=== PATIENT | female | born 1930 | race Two or more races ===

== ENCOUNTER 2020-09-22 14:09 | Inpatient (IN) | payer MEDICARE, OTHER ==
[~2020-09-22] VITALS: Ht 162.6 cm; Wt 63.5 kg
[2020-09-22] MEDS ORDERED: IV NORMAL SALINE 1000 ML BAG IV ONE (14:30)
[2020-09-22 14:53] LABS: HEMATOCRIT 36.7 % (31.2-41.9); MEAN CORPUSCULAR HEMOGLOBIN 32.1 uug (24.7-32.8); MEAN CORPUSCULAR VOLUME 93.8 fL (75.5-95.3); PLATELET COUNT (AUTO) 174 K/uL (179-408)
[2020-09-22 15:00] LABS: CREATININE 1.3 mg/dL (0.6-1.3); POTASSIUM 3.1 mmol/L (3.5-5.1)
[2020-09-22 15:05] LABS: BILIRUBIN,DIRECT 0.2 mg/dL (0.0-0.2); BILIRUBIN,TOTAL 0.7 mg/dL (0.2-1.0); TOTAL PROTEIN, SERUM 6.5 g/dL (6.4-8.2)
[2020-09-22] MEDS ORDERED: LOPE2CAP PO (15:19)
[2020-09-22] MEDS ORDERED: LETR2.5T PO (15:19)
[2020-09-22] MEDS ORDERED: LOSA50TA39 PO (15:19)
[2020-09-22] MEDS ORDERED: PRAZ1CAP5 PO (15:26)
[2020-09-22] MEDS ORDERED: CALC1TAB91 PO (15:26)
[2020-09-22] MEDS ORDERED: ATOR10TA PO (15:26)
[2020-09-22] MEDS ORDERED: GLIM4TAB37 PO (15:26)
[2020-09-22] MEDS ORDERED: ALLO100T PO (15:26)
[2020-09-22] MEDS ORDERED: MECL-159 PO (15:26)
[2020-09-22] MEDS ORDERED: hydrALAZINE HCL 20 MG/1 ML VIAL IV ONE (17:15)
[2020-09-22] MEDS ORDERED: hydrALAZINE HCL 20 MG/1 ML VIAL ONE (18:39)
[2020-09-22] MEDS ORDERED: MAGNESIUM HYDROXIDE 30 ML LIQUID UDC PO PRN (20:15)
[2020-09-22] MEDS ORDERED: Z GUARD REMEDY PASTE 57 GM TUBE TOP PRN (20:15)
[2020-09-22] MEDS ORDERED: ONDANSETRON 4 MG/2 ML VIAL IV PRN (20:15)
[2020-09-22] MEDS ORDERED: ACETAMINOPHEN 325 MG TABLET PO PRN (20:15)
--- NOTE | 2020-09-22 20:19 | NUR ---
Gave report to Violeta VERGARA, tele nurse.
--- NOTE | 2020-09-22 20:40 | NUR ---
Pt. admitted to tele room 307 , under care of Dx: ALOC VSS, denies any pain/discomfort. Belongs List completed
[2020-09-22 20:45] VITALS: BP 138/57
[2020-09-22] MEDS ORDERED: MECLIZINE HCL 25 MG TABLET PO PRN (20:45)
[2020-09-22] MEDS ORDERED: DEXTROSE 50% 50 ML DISP.SYRIN IV PRN (20:45)
[2020-09-22] MEDS ORDERED: LOPERAMIDE HCL 2 MG CAPSULE PO PRN (20:45)
[2020-09-22] MEDS: ATORVASTATIN 10 MG TABLET PO SCH (21:00)
[2020-09-22] MEDS ORDERED: POTASSIUM CHLORIDE 20 MEQ TAB.PRT.SR PO ONE (21:00)
[2020-09-22] MEDS: BLOOD SUGAR DIAGNOSTIC 1 EACH STRIP VI SCH (21:39)
--- NOTE | 2020-09-22 23:00 | NUR ---
Patient is 89 y/o female admitted to [facility] at 2034H via [facility] accompanied by ER Nurse Alyssa. She is A/O x2 with visual hallucinations. Denies pain and discomfort. Heplock on left forearm flushed with NS, remains intact. Body assessment done, skin is intact. 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 Vital signs WNL. Call light placed within reach. Frequent visual checks done. Will continue to monitor.
--- NOTE | 2020-09-22 23:35 | NUR ---
Patient accucheck done, BS 194 patient refused insulin 3 units. Patient stated that she will be ok with her blood sugar and afraid that it will go too low at night. Risks and benefits explained, patient still refused.
[2020-09-23 00:05] VITALS: BP 198/47
[2020-09-23] MEDS: ENALAPRILAT DIHYDRATE 1.25 MG/1 ML VIAL IV PRN (02:29)
[2020-09-23] MEDS ORDERED: CLONIDINE-TTS 1 PATCH TD SCH (02:30)
[2020-09-23 04:10] VITALS: BP 201/61
--- NOTE | 2020-09-23 05:38 | NUR ---
Patient was noted with elevated blood pressure 238/65. Denies pain, discomfort, or dizziness. She is agitated and keep telling RN not to give her any BP medications. She is doubtful of the BP machine and is afraid her BP will go too low. Dr. Torrez informed and ordered Vasotec IV q6 and Clonidine patch q7days. Vasotec given at 0229H via slow IV push. BP at 0400H went down to 201/61. Patient is A/O x2, able to make needs known. Will continue to monitor.
[2020-09-23] MEDS: PANTOPRAZOLE SODIUM 40 MG TABLET.DR PO SCH (06:41)
[2020-09-23] MEDS: BLOOD SUGAR DIAGNOSTIC 1 EACH STRIP VI SCH ×4 (06:43→20:28)
--- NOTE | 2020-09-23 06:59 | NUR ---
Patient latest BP 179/63, HR 77. Denies pain and discomfort. A/O x2, able to make needs known. Will endorse to next shift.
[2020-09-23 07:44] LABS: MEAN CORPUSCULAR HEMOGLOBIN 31.9 uug (24.7-32.8); MEAN CORPUSCULAR VOLUME 94.6 fL (75.5-95.3); PLATELET COUNT (AUTO) 174 K/uL (179-408)
[2020-09-23] MEDS: ALLOPURINOL 100 MG TABLET PO SCH ×3 (08:05→20:27)
[2020-09-23] MEDS: CALCIUM CARB/VITAMIN D 500MG-200UNITS TABLET PO SCH (08:05)
[2020-09-23] MEDS: PRAZOSIN HCL 1 MG CAPSULE PO SCH ×3 (08:06→16:29)
[2020-09-23] MEDS: LOSARTAN POTASSIUM 50 MG TABLET PO SCH (08:06)
[2020-09-23] MEDS: GLIMEPIRIDE 4 MG TABLET PO SCH ×2 (08:07→17:15)
--- NOTE | 2020-09-23 08:16 | NUR ---
ALERT BUT CONFUSED TALKING TO SELF REFUSED HER INSULIN STATED THAT HER DOCTOR DID NOT WANT HER TO BE TAKING INSULIN ONLY AMARYL ALL NEEDS ANTICIPATED AND SATISFIED WILL CONTINUE TO OBSERVE.
[2020-09-23 08:25] LABS: ALANINE AMINOTRANSFERASE < 6 U/L (14-59); ALKALINE PHOSPHATASE 61 U/L (50-136); ASPARTATE AMINOTRANSFERASE 18 U/L (15-37); BILIRUBIN,TOTAL 0.6 mg/dL (0.2-1.0); CARBON DIOXIDE 26 mmol/L (21-32); CHLORIDE 106 mmol/L (98-107); CREATININE 1.1 mg/dL (0.6-1.3); GLUCOSE 158 mg/dL (74-106); PHOSPHOROUS 2.8 mg/dL (2.5-4.9); POTASSIUM 3.9 mmol/L (3.5-5.1); TOTAL PROTEIN, SERUM 6.2 g/dL (6.4-8.2); UREA NITROGEN, BLOOD 12 mg/dL (7-18)
[2020-09-23 09:13] LABS: CHOLESTEROL 176 mg/dL (<200); HDL CHOLESTEROL 45 mg/dL (40-60); TRIGLYCERIDES 103 MG/DL (30-150)
[2020-09-23 09:40] LABS: MAGNESIUM 1.8 mg/dL (1.8-2.4)
--- NOTE | 2020-09-23 11:30 | NUR ---
PATIENT WAS CONVINCED BY HER DAUGHTER AT THE BEDSIDE AND DR BECCA KEEN TO BE STRAIGHT CATH FOR SPECIMEN AND SHE AGREED WAS STRAIGHT CATH AND SENT TO THE LAB.
[2020-09-23 12:21] LABS: *BILIRUBIN,URIN NEGATIVE (NEGATIVE); *BLOOD, URINE NEGATIVE (NEGATIVE); *CLARITY,URINE CLEAR (CLEAR); *COLOR,URINE YELLOW (YELLOW); *KETONES,URINE NEGATIVE (NEGATIVE); LEUKOCYTE ESTERASE ,URINE NEGATIVE (NEGATIVE); NITRITE, URINE NEGATIVE (NEGATIVE); UGLUCOSE NEGATIVE (NEGATIVE)
--- NOTE | 2020-09-23 12:21 | NUR ---
BLOOD PRESSURE IS 189/65 HEART RATE IS 75 BLOOD SUGAR IS 184 PATIENT REFUSED HYDRALAZINE AND INSULIN COVERAGE ORDERED STATED WILL NOT TAKE THEM PATIENTS DAUGHTER LENETTE HERE AT THE BEDSIDE AND AWARE AND STATED THAT HER MOTHER IS ALWAYS LIKE THIS AT HOME REFUSES MOST OF HER MEDICATIONS .
[2020-09-23 12:29] LABS: *CREATININE,URINE 80.8 mg/dL (30-125); *URINE TOTAL PROTEIN RANDOM 19.1 mg/dL (<150/24HR)
[2020-09-23 12:30] VITALS: BP 184/65
[2020-09-23 13:43] LABS: BACTERIA,URINE NONE SEEN /HPF (NONE SEEN); MUCUS,URINE FEW /LPF (0-FEW); RBC,URINE 0-3 /HPF (0-3); SQUAMOUS EPITHELIAL CELL,UR FEW /HPF (NONE SEEN); WBC,URINE 0-3 /HPF (0-3)
[2020-09-23 15:37] VITALS: BP 170/73
--- NOTE | 2020-09-23 15:44 | NUR ---
BLOOD SUGAR AGAIN IS 170/73 PATIENT STATED IT WAS OKAY STATED HIS DOCTOR DID NOT WANT HER TO TAKE ANY BLOOD PRESSURE MEDICATIONS PROVIDER WAS ALREADY NOTIFIED AND PATIENTS DAUGHTER ANNE IS ALSO AWARE. Addendum: 09/23/20 at 1550 by YOON ROMERO RN ERROR BLOOD PRESSURE IS 170/73 NOT BLOOD SUGAR
--- NOTE | 2020-09-23 17:12 | NUR ---
BLOOD SUGAR IS 203 AND PATIENT CONTINUES TO REFUSE INSULIN COVERAGE PER SLIDING SCALE ORDERED.DAUGHTER IS HERE AT THE BEDSIDE.
[2020-09-23] MEDS: ATORVASTATIN 10 MG TABLET PO SCH ×2 (20:19→20:27)
[2020-09-23] MEDS: INSULIN REGULAR, HUMAN 300 UNIT/3 ML VIAL SQ PRN (20:21)
[2020-09-23] MEDS: hydrALAZINE HCL 20 MG/1 ML VIAL IV PRN (20:25)
--- NOTE | 2020-09-23 20:30 | NUR ---
Pt refused due medications and insulin coverage. Latest BS is 144 Explained the risks of not getting the medication. Pt still refused. will continue to monitor.
[2020-09-23 21:07] VITALS: BP 174/48
[2020-09-24 00:44] VITALS: BP 187/75
[2020-09-24] MEDS: hydrALAZINE HCL 20 MG/1 ML VIAL IV PRN ×2 (01:24→05:08)
--- NOTE | 2020-09-24 04:00 | NUR ---
Pt noted with vomiting x 1. Offered zofran, pt refused. will continue to monitor.
[2020-09-24 04:30] VITALS: BP 206/71
[2020-09-24] MEDS: PANTOPRAZOLE SODIUM 40 MG TABLET.DR PO SCH (06:25)
[2020-09-24 06:35] LABS: HEMATOCRIT 37.8 % (31.2-41.9); MEAN CORPUSCULAR HEMOGLOBIN 32.4 uug (24.7-32.8); MEAN CORPUSCULAR VOLUME 95.3 fL (75.5-95.3); PLATELET COUNT (AUTO) 164 K/uL (179-408)
--- NOTE | 2020-09-24 06:41 | NUR ---
Pt slept intermittently through the night, took morning medication. No signs of respiratory distress. Repositioning done for comfort. PRN BP medication administered as ordered. All needs attended to and met.
[2020-09-24] MEDS: BLOOD SUGAR DIAGNOSTIC 1 EACH STRIP VI SCH ×4 (06:59→20:32)
[2020-09-24 07:03] LABS: BILIRUBIN,TOTAL 0.7 mg/dL (0.2-1.0); CREATININE 1.1 mg/dL (0.6-1.3); PHOSPHOROUS 3.3 mg/dL (2.5-4.9); POTASSIUM 3.7 mmol/L (3.5-5.1); TOTAL PROTEIN, SERUM 6.5 g/dL (6.4-8.2)
[2020-09-24 07:05] LABS: THYROID STIMULATING HORMONE 1.676 mIU/mL (0.358-3.740)
[2020-09-24] MEDS: GLIMEPIRIDE 4 MG TABLET PO SCH ×2 (08:00→17:02)
--- NOTE | 2020-09-24 08:00 | NUR ---
PATIENT CONTINUES TO REFUSE MEDICATIONS AND INSULIN COVERAGE ORDERED DESPITE EXPLAINATIONS AND ENCOURAGEMENTS ALL NEEDS ANTICIPATED MADE COMFORTABLE WILL CONTINUE TO OBSERVE.
[2020-09-24] MEDS: LOSARTAN POTASSIUM 50 MG TABLET PO SCH ×2 (08:59→21:27)
[2020-09-24] MEDS: PRAZOSIN HCL 1 MG CAPSULE PO SCH ×3 (08:59→16:57)
[2020-09-24] MEDS: ALLOPURINOL 100 MG TABLET PO SCH ×2 (08:59→21:27)
[2020-09-24] MEDS: CALCIUM CARB/VITAMIN D 500MG-200UNITS TABLET PO SCH (08:59)
[2020-09-24] MEDS: AMLODIPINE 10 MG TABLET PO SCH (09:45)
[2020-09-24] MEDS: METOPROLOL TARTRATE 25 MG TABLET PO SCH ×2 (09:45→20:49)
[2020-09-24 11:38] VITALS: BP 164/31
--- NOTE | 2020-09-24 11:40 | NUR ---
PATIENTS BLOOD SUGAR AT THIS TIME IS 151 AND BLOOD PRESSURE SYSTOLIC IN THE 160S PATIENT HAS CONSISTENTLY REFUSED ALL HER MEDICATIONS ORDERED STATED WANT TO REST ALSO REFUSED BREAKFAST.
--- NOTE | 2020-09-24 14:20 | NUR ---
PATIENTS DAUGHTER IS AT THE BEDSIDE PATIENT HAS BEEN REFUSING MEALS AND MEDICATIONS DAUGHTER STATED THAT PATIENT IS ACTING DIFFERENT NOT TALKING USUAL SHE IS AWAKE ALERT RESPONDS TO YES AND NO FOLLOWS COMMAND WHEN ASKED TO RAISE HER ARMS WAS ABLE TO WITH NO DRIFT HAND ACCESS SERVICE REPRESENTATIVE BOTH ARMS ARE STRONG CALLED DR BECCA KEEN AND LEFT HIM A MESSAGE
--- NOTE | 2020-09-24 14:29 | NUR ---
BLOOD SUGAR CHECKED AGAIN AT THIS TIME PER DR KEEN AND ITS [address] BECCA KEEN PATIENT IS AWAKE NOT TALKATIVE SHE USUALLY DOES RESPONDS TO HER NAME WITH ONE WORD RESPONSE IN [employer] SPECIALIST STRONG AND EQUAL TO BOTH HANDS AWAITING DR KEEN TO RESPOND.
--- NOTE | 2020-09-24 14:39 | NUR ---
BLOOD PRESSURE CHECKED AT THIS TIME AND ITS / DR BECCA ROSALESUAL NOTIFIED.
--- NOTE | 2020-09-24 14:50 | NUR ---
ORDER FOR CT HEAD WITHOUT CONTRAST RECEIVED AND CARRIED OUT
--- NOTE | 2020-09-24 15:17 | NUR ---
PICKED UP BY BED TO XRAY DEPARTMENT FOR CT HEAD ORDERED ALERT AND ANSWERING TO YES OR NO RESPONSES AT THIS TIME WILL CONTINUE TO OBSERVE.
[2020-09-24 15:19] VITALS: BP 146/56
--- NOTE | 2020-09-24 15:31 | NUR ---
PATIENT RETURNED BACK TO HER ROOM ASKING FOR HER DAUGHTER KNEW HER DAUGHTER NAME AWAKE ALERT WILL CONTINUE TO OBSERVE.
--- NOTE | 2020-09-24 16:45 | NUR ---
PATIENT AWAKE REQUESTED FOR COCA COLA CALLED [facility] AND THEY DELIVERED A DIET COKE AND SHE IS DRINKING AND SIPPING ASSISTED WILL CONTINUE TO OBSERVE.
--- NOTE | 2020-09-24 17:05 | NUR ---
PATIENT IS AWAKE ALERT HYPER VOCAL COMPLIANT WITH HER MINIPRESS AND AMARYL BUT CONTINUE TO REFUSE INSULIN PER SLIDING SCALE RESTING IN BED WITH NO C/O AT THIS TIME
--- NOTE | 2020-09-24 19:30 | NUR ---
Received pt in bed, sleeping but easily arousable. No signs of acute distress noted. IV access intact and patent. Safety measures initiated, call light within reach.
[2020-09-24] MEDS: INSULIN REGULAR, HUMAN 300 UNIT/3 ML VIAL SQ PRN (20:32)
[2020-09-24 20:40] VITALS: BP 154/57
[2020-09-24] MEDS: ENALAPRILAT DIHYDRATE 1.25 MG/1 ML VIAL IV PRN (20:44)
[2020-09-24] MEDS ORDERED: LOSARTAN POTASSIUM 50 MG TABLET ONE (21:22)
[2020-09-24] MEDS: ATORVASTATIN 10 MG TABLET PO SCH (21:27)
--- NOTE | 2020-09-24 21:30 | NUR ---
Held Metoprolol medication due to HR of 54. will continue to monitor.
[2020-09-25 00:43] VITALS: BP 141/54
[2020-09-25] MEDS: ENALAPRILAT DIHYDRATE 1.25 MG/1 ML VIAL IV PRN (04:22)
[2020-09-25 04:36] VITALS: BP 154/68
[2020-09-25] MEDS: PANTOPRAZOLE SODIUM 40 MG TABLET.DR PO SCH (06:02)
--- NOTE | 2020-09-25 06:31 | NUR ---
Pt slept through the night, no significant change in condition noted. NSR on tele. Tolerated due medications, PRN BP medication administered as needed. Refused insulin coverage last night. Latest BS is 117. Safety measures maintained at all times. All needs attended to and met.
[2020-09-25 06:42] LABS: HEMATOCRIT 32.2 % (31.2-41.9); MEAN CORPUSCULAR HEMOGLOBIN 32.1 uug (24.7-32.8); MEAN CORPUSCULAR VOLUME 95.2 fL (75.5-95.3); PLATELET COUNT (AUTO) 137 K/uL (179-408)
[2020-09-25] MEDS: BLOOD SUGAR DIAGNOSTIC 1 EACH STRIP VI SCH ×4 (06:50→21:39)
[2020-09-25 07:01] LABS: CREATININE 1.2 mg/dL (0.6-1.3); POTASSIUM 3.6 mmol/L (3.5-5.1)
--- NOTE | 2020-09-25 08:00 | NUR ---
Aspiration precaution implemented. PT alert x 2. Pt speaks to herself constantly. Pt denies any auditory and visual hallucinations.
[2020-09-25] MEDS: ALLOPURINOL 100 MG TABLET PO SCH ×2 (08:27→21:34)
[2020-09-25] MEDS: METOPROLOL TARTRATE 25 MG TABLET PO SCH (08:27)
[2020-09-25] MEDS: AMLODIPINE 10 MG TABLET PO SCH (08:29)
[2020-09-25] MEDS: CALCIUM CARB/VITAMIN D 500MG-200UNITS TABLET PO SCH (08:29)
[2020-09-25] MEDS: PRAZOSIN HCL 1 MG CAPSULE PO SCH ×3 (08:32→17:43)
[2020-09-25] MEDS: GLIMEPIRIDE 4 MG TABLET PO SCH ×2 (08:38→17:43)
[2020-09-25] MEDS: LOSARTAN POTASSIUM 50 MG TABLET PO SCH ×2 (08:40→21:00)
--- NOTE | 2020-09-25 11:30 | NUR ---
Telephone Operators Supervisor Consultation: 11:00am: Telephone Operators Supervisor consultation requested for possible concerns regarding self-neglect and hallucinations. Patient is an 89 year old female who was brought to the ED for altered mental status. This PATIENT SCHEDULING COORDINATOR met with the patient bedside in her hospital room. Patient is an 89 year old female. As this PATIENT SCHEDULING COORDINATOR came close to the the patient's room, this PATIENT SCHEDULING COORDINATOR could hear patient talking, however when this PATIENT SCHEDULING COORDINATOR entered the room, there was no one in the room and therefore appeared to be talking to herself. When this PATIENT SCHEDULING COORDINATOR stated patient's name, patient responded. Patient was receptive to speaking with this PATIENT SCHEDULING COORDINATOR. Patient was awake, oriented x 3. Patient was aware that she was in the hospital, knew the month and year, however thought today was . Patient was able to correctly provide her address and . Patient states she lives at home with her daughter and grandchildren. Patient stated that she needs help with ambulation and ADL's, as her vision is very poor. Patient states that she has gone to ophthalmologists for her eye condition, however claims that the eye drops that have been prescribed to her cause her to have hallucinations. Patient reports not using her medications, and reported that her vision is very poor at this time and that she only knows that someone is in the room based on voices. Patient claims she has had hallucinations on a few occasions where she sees people, but she knows they are not real. Patient denies hearing voices. Patient states that she plans to return home once she is discharged from the hospital. This PATIENT SCHEDULING COORDINATOR discussed above with patient's nurse RN Holcomb. Holcomb also reported incidents of patient speaking to herself. Holcomb to request a psychiatric consultation. Telephone Operators Supervisor will remain available, as needed.
[2020-09-25 12:00] VITALS: BP 151/52
--- NOTE | 2020-09-25 12:36 | NUR ---
Spoke with medical secretary teacher of DR JONES [phone] courtesy call made for psych eval.
[2020-09-25] MEDS: INSULIN REGULAR, HUMAN 300 UNIT/3 ML VIAL SQ PRN (13:14)
[2020-09-25] MEDS ORDERED: IV NS 1000 ML 1,000 ML IV PRN (14:30)
[2020-09-25 16:00] VITALS: BP 164/52
--- NOTE | 2020-09-25 18:35 | NUR ---
Pt is in no acute distress. Call light is within reach.
--- NOTE | 2020-09-25 19:00 | NUR ---
RECEIVED REPORT FROM AM NURSE FAMILY [employer]ERS AT BEDSIDE PT IS TALKING TO CEILING NO SIGNS OF RESPIRATORY DISTRESS NOTED. MEDICATION GIVEN ORDERED NO SIGNS OF ADVERSE REACTION NOTED. WILL CONTINUE TO MONITOR.
[2020-09-25 20:02] VITALS: BP 126/54
[2020-09-25] MEDS: ATORVASTATIN 10 MG TABLET PO SCH (21:40)
[2020-09-26 04:18] VITALS: BP 164/52
[2020-09-26] MEDS: PANTOPRAZOLE SODIUM 40 MG TABLET.DR PO SCH (06:27)
[2020-09-26 06:29] LABS: HEMATOCRIT 30.5 % (31.2-41.9); MEAN CORPUSCULAR HEMOGLOBIN 32.5 uug (24.7-32.8); MEAN CORPUSCULAR VOLUME 95.8 fL (75.5-95.3); PLATELET COUNT (AUTO) 128 K/uL (179-408)
[2020-09-26] MEDS: BLOOD SUGAR DIAGNOSTIC 1 EACH STRIP VI SCH ×3 (06:32→16:34)
[2020-09-26 06:43] LABS: BILIRUBIN,TOTAL 0.6 mg/dL (0.2-1.0); CREATININE 1.3 mg/dL (0.6-1.3); PHOSPHOROUS 3.8 mg/dL (2.5-4.9); POTASSIUM 3.5 mmol/L (3.5-5.1); TOTAL PROTEIN, SERUM 5.3 g/dL (6.4-8.2)
--- NOTE | 2020-09-26 08:00 | NUR ---
PT forgetful alert to name and place. Pt iv site Addendum: 09/26/20 at 1839 by LALA STOVALL RN IV site intact. Aspiration precaution implemented. HOB on high folwers when feeding. Pt is in no acute distress.
[2020-09-26] MEDS: ALLOPURINOL 100 MG TABLET PO SCH (08:04)
[2020-09-26] MEDS: CALCIUM CARB/VITAMIN D 500MG-200UNITS TABLET PO SCH (08:04)
[2020-09-26] MEDS: LOSARTAN POTASSIUM 50 MG TABLET PO SCH (08:06)
[2020-09-26] MEDS: AMLODIPINE 10 MG TABLET PO SCH (08:06)
[2020-09-26] MEDS: CARVEDILOL 12.5 MG TABLET PO SCH ×2 (08:07→16:36)
[2020-09-26] MEDS: PRAZOSIN HCL 1 MG CAPSULE PO SCH ×3 (08:08→16:37)
[2020-09-26] MEDS: GLIMEPIRIDE 4 MG TABLET PO SCH ×2 (08:08→16:36)
[2020-09-26 11:30] VITALS: BP 121/49
[2020-09-26] MEDS ORDERED: ACET325T53 PO (12:53)
[2020-09-26] MEDS ORDERED: AMLO10TA59 PO (12:53)
[2020-09-26] MEDS ORDERED: INSU100V28 SQ (12:53)
[2020-09-26] MEDS ORDERED: LOSA50TA3 PO (12:53)
[2020-09-26] MEDS ORDERED: CARV12.52 PO (12:53)
[2020-09-26] MEDS ORDERED: CLON1PAT TD (12:53)
[2020-09-26] MEDS ORDERED: Blood Sugar Diagnostic VI (12:53)
--- NOTE | 2020-09-26 15:30 | NUR ---
Mayelin bilingual patient support caseworker clarified pt is ok to be sent to [facility] and Josseline daughter agreeable with plan. PT is for [facility] at 1630.
[2020-09-26 15:44] VITALS: BP 153/53
[2020-09-26 16:37] VITALS: BP 153/53
--- NOTE | 2020-09-26 17:30 | NUR ---
Discharge instructions given to IAN (daughter) secondary to pt forgetful. Report given to Tera reynolds from [facility]. Pt is in no acute distress upon discharge to [facility]. PT denies any c/o pain. Report given to ambulance transport. IV d/c. Daughter to f/u with vaccination with pt's PMD. VSS.
[2020-09-28 13:45] LABS: ALBUMIN 2.8; ALPHA-1-GLOBULIN 0.2; ALPHA-2-GLOBULIN 0.8; GAMMA GLOBULIN 0.8; GLOBULIN, TOTAL 2.9; M-SPIKE NOT OBSERVED
== END 2020-09-26 17:30 | DRG 304 ==
LOC: ER 14:09 → TELE3 20:22 → MEDSURG3 09-25 10:13
PROVIDERS: ADMIT Hospitalist; ATTEND Nurse Practitioner Acute Care
DX: I16.9 Hypertensive crisis, unspecified (principal); G92 Toxic encephalopathy; F05 Delirium due to known physiological condition; E11.65 Type 2 diabetes mellitus with hyperglycemia; R62.7 Adult failure to thrive; E78.5 Hyperlipidemia, unspecified; E87.6 Hypokalemia; Z92.21 Personal history of antineoplastic chemotherapy; Z85.3 Personal history of malignant neoplasm of breast; F03.90 Unspecified dementia, unspecified severity, without behavioral disturbance, psychotic disturbance, mood disturbance, and anxiety; Z91.19 Patient's noncompliance with other medical treatment and regimen; F41.0 Panic disorder [episodic paroxysmal anxiety]; R42 Dizziness and giddiness; H40.9 Unspecified glaucoma; Z79.84 Long term (current) use of oral hypoglycemic drugs; H54.7 Unspecified visual loss; D69.6 Thrombocytopenia, unspecified; E88.09 Other disorders of plasma-protein metabolism, not elsewhere classified; Z68.24 Body mass index [BMI] 24.0-24.9, adult; Z20.822 Contact with and (suspected) exposure to COVID-19; F41.9 Anxiety disorder, unspecified; I10 Essential (primary) hypertension
CPT/HCPCS: 36415; 70030-TC; 70450; 71045; 82088; 83735; 83970; 84100; 84155; 84156; 84165; 84244; 84300; 84443; 85025; 85730; 87086; 93005; C1758; G0378; J0360; J1815; J3490; J7030; J8499